=== PATIENT | male | born 1965 | race Caucasian/White ===

== ENCOUNTER 2020-05-27 13:47 | Inpatient (IN) | payer OTHER ==
[2020-05-27] MEDS ORDERED: BISMUTH SUBSALICYLATE 524 MG/30 ML UD PO PRN (15:58)
[2020-05-27] MEDS ORDERED: ACETAMINOPHEN 325 MG TABLET (FP) PO PRN (15:58)
[2020-05-27] MEDS ORDERED: NICOTINE POLACRILEX 2 MG GUM BUC PRN (15:58)
[2020-05-27] MEDS ORDERED: MAG HYDROX/AL HYDROX/SIMETH 30 ML UNIT-DOSE CUP PO PRN (15:58)
[2020-05-27] MEDS ORDERED: MAGNESIUM CITRATE 300 ML BOTTLE PO PRN (15:58)
[2020-05-27] MEDS ORDERED: MENTHOL/PHENOL 1 EACH UD MM PRN (15:58)
[2020-05-27] MEDS ORDERED: ONDANSETRON *ODT* 4 MG TABLET SL PRN (15:58)
[2020-05-27] MEDS ORDERED: MAGNESIUM HYDROX 2400MG/30ML ORAL SUSPENSION 30 ML CUP PO PRN (15:58)
[2020-05-27 16:26] VITALS: BMI 30.4
[2020-05-27] MEDS: chlordiazePOXIDE HCL 25 MG CAPSULE PO PRN (18:12)
[2020-05-27] MEDS: hydrOXYzine PAMOATE 25 MG CAPSULE (FP) PO SCH ×2 (18:14→22:11)
[2020-05-27] MEDS: METHOCARBAMOL 500 MG TABLET PO PRN (18:14)
[2020-05-27] MEDS: chlordiazePOXIDE HCL 25 MG CAPSULE PO SCH ×2 (18:43→22:10)
[2020-05-27] MEDS: NICOTINE 21 MG/24 HOURS TOPICAL PATCH TD SCH (18:46)
[2020-05-27] MEDS ORDERED: MELATONIN 5 MG TABLETS PO SCH (22:00)
[2020-05-27] MEDS: THIAMINE HCL 100 MG TABLET (FP) PO SCH (22:11)
[2020-05-28] MEDS: chlordiazePOXIDE HCL 25 MG CAPSULE PO SCH ×4 (05:40→22:09)
[2020-05-28] MEDS: METHOCARBAMOL 500 MG TABLET PO PRN (05:43)
[2020-05-28] MEDS: hydrOXYzine PAMOATE 25 MG CAPSULE (FP) PO SCH ×3 (05:46→13:02)
[2020-05-28] MEDS: metFORMIN HCL 500 MG TABLET (FP) PO SCH ×2 (07:34→16:54)
[2020-05-28] MEDS: LEVOTHYROXINE NA 25 MCG TABLET (FP) PO SCH (07:35)
[2020-05-28] MEDS: LEVOTHYROXINE NA 100 MCG TABLET (FP) PO SCH (07:35)
[2020-05-28] MEDS ORDERED: METHADONE HCL 10 MG TABLET ONE ×2 (09:49→10:18)
[2020-05-28] MEDS ORDERED: METHADONE HCL 40 MG DISPERSABLE TABLET ONE ×2 (09:50→10:18)
[2020-05-28] MEDS ORDERED: METHADONE HCL 10 MG TABLET PO ONE (10:00)
[2020-05-28] MEDS ORDERED: METHADONE 40 MG, METHADONE 30 MG PO ONE (10:00)
[2020-05-28] MEDS ORDERED: LEVOTHYROXINE NA 25 MCG TABLET (FP) PO SCH (10:00)
[2020-05-28] MEDS ORDERED: LISINOPRIL 20 MG TABLET PO SCH (10:00)
[2020-05-28] MEDS: PRENATAL VITAMINS W/ FOLIC ACID TABLET (FP) PO SCH (10:11)
[2020-05-28] MEDS: NICOTINE 21 MG/24 HOURS TOPICAL PATCH TD SCH (10:13)
[2020-05-28 12:16] LABS: HEMATOCRIT 36.5 % (35.4-49); HEMOGLOBIN 11.9 GM/dL (11.7-16.9); MCH 23.8 pg (25.7-33.7); MCHC 32.4 g/dl (32.0-35.9); MEAN CELL VOLUME 73.4 fl (80-96); MEAN PLT VOLUME 7.4 fl (7.5-11.1); PLATELET COUNT 480 K/MM3 (134-434); RBC 4.98 M/mm3 (4.00-5.60); RDW 17.4 % (11.9-15.9); WHITE BLOOD COUNT 10.9 K/mm3 (4.0-10.0)
[2020-05-28 12:31] LABS: ALBUMIN 3.9 g/dl (3.4-5.0); BLOOD UREA NITROGEN 11.4 mg/dL (7-18); CALCIUM 9.5 mg/dL (8.5-10.1)
[2020-05-28 12:34] LABS: CREATININE 0.9 mg/dL (0.55-1.3)
[2020-05-28 12:36] LABS: BILIRUBIN,TOTAL 0.7 mg/dL (0.2-1); TOT PROT 7.7 g/dl (6.4-8.2)
[2020-05-28] MEDS: IBUPROFEN 400 MG TABLET (FP) PO PRN (13:01)
[2020-05-28 13:18] LABS: HIV INTERPRETATION NEGATIVE (NEGATIVE)
[2020-05-28] MEDS ORDERED: cloNIDine HCL 0.1 MG TABLET PO PRN (14:28)
[2020-05-28] MEDS: ACETAMINOPHEN 325 MG TABLET (FP) PO PRN (16:18)
[2020-05-28] MEDS: THIAMINE HCL 100 MG TABLET (FP) PO SCH (22:08)
[2020-05-28] MEDS: traZODone HCL 50 MG TABLET (FP) PO SCH (22:10)
[2020-05-28] MEDS: SUVOREXANT 10 MG TABLET PO PRN (22:10)
[2020-05-29] MEDS ORDERED: METHADONE HCL 10 MG TABLET PO SCH (06:00)
[2020-05-29] MEDS: metFORMIN HCL 500 MG TABLET (FP) PO SCH ×2 (07:16→18:04)
[2020-05-29] MEDS: LEVOTHYROXINE NA 100 MCG TABLET (FP) PO SCH (07:17)
[2020-05-29] MEDS: chlordiazePOXIDE HCL 25 MG CAPSULE PO SCH ×4 (07:17→22:16)
[2020-05-29] MEDS: LEVOTHYROXINE NA 25 MCG TABLET (FP) PO SCH (07:18)
[2020-05-29] MEDS ORDERED: METHADONE HCL 40 MG DISPERSABLE TABLET ONE (07:19)
[2020-05-29] MEDS ORDERED: METHADONE HCL 10 MG TABLET ONE (07:19)
[2020-05-29] MEDS: METHADONE 40 MG, METHADONE 30 MG PO SCH (07:19)
[2020-05-29] MEDS: IBUPROFEN 400 MG TABLET (FP) PO PRN (08:49)
[2020-05-29] MEDS: METHOCARBAMOL 500 MG TABLET PO PRN ×2 (08:49→22:20)
[2020-05-29] MEDS ORDERED: COLLOIDAL OATMEAL 1 BAR EACH TP PRN (09:20)
[2020-05-29] MEDS: NICOTINE 21 MG/24 HOURS TOPICAL PATCH TD SCH (10:01)
[2020-05-29] MEDS: LISINOPRIL 20 MG TABLET PO SCH ×2 (10:01→22:15)
[2020-05-29] MEDS: PRENATAL VITAMINS W/ FOLIC ACID TABLET (FP) PO SCH (10:01)
[2020-05-29] MEDS: CLOTRIMAZOLE 1% CREAM 15 GM TUBE TP SCH ×2 (12:00→22:18)
[2020-05-29] MEDS: LIDOCAINE 5% TOPICAL PATCH TP SCH (12:18)
[2020-05-29] MEDS: chlordiazePOXIDE HCL 25 MG CAPSULE PO PRN (14:05)
[2020-05-29] MEDS: hydrOXYzine PAMOATE 25 MG CAPSULE (FP) PO PRN (18:07)
[2020-05-29] MEDS: traZODone HCL 50 MG TABLET (FP) PO SCH (22:16)
[2020-05-29] MEDS: LIDOCAINE PATCH REMOVAL MC SCH (22:17)
[2020-05-29] MEDS: THIAMINE HCL 100 MG TABLET (FP) PO SCH (22:18)
[2020-05-29] MEDS: ACETAMINOPHEN 325 MG TABLET (FP) PO PRN (22:19)
[2020-05-29] MEDS: SUVOREXANT 10 MG TABLET PO PRN (22:21)
[2020-05-30] MEDS ORDERED: chlordiazePOXIDE HCL 10 MG CAPSULE PO PRN
[2020-05-30] MEDS ORDERED: METHADONE HCL 10 MG TABLET ONE (03:39)
[2020-05-30] MEDS ORDERED: METHADONE HCL 40 MG DISPERSABLE TABLET ONE (03:40)
[2020-05-30] MEDS: metFORMIN HCL 500 MG TABLET (FP) PO SCH ×2 (06:49→17:49)
[2020-05-30] MEDS: chlordiazePOXIDE HCL 10 MG CAPSULE PO SCH ×4 (06:49→22:03)
[2020-05-30] MEDS: LEVOTHYROXINE NA 25 MCG TABLET (FP) PO SCH (06:50)
[2020-05-30] MEDS: METHADONE 40 MG, METHADONE 30 MG PO SCH (06:50)
[2020-05-30] MEDS: LEVOTHYROXINE NA 100 MCG TABLET (FP) PO SCH (06:50)
[2020-05-30] MEDS: METHOCARBAMOL 500 MG TABLET PO PRN ×2 (07:38→17:59)
[2020-05-30] MEDS: ACETAMINOPHEN 325 MG TABLET (FP) PO PRN ×2 (07:38→19:58)
[2020-05-30] MEDS: LISINOPRIL 20 MG TABLET PO SCH ×2 (10:26→22:03)
[2020-05-30] MEDS: CLOTRIMAZOLE 1% CREAM 15 GM TUBE TP SCH ×2 (10:27→22:04)
[2020-05-30] MEDS: PRENATAL VITAMINS W/ FOLIC ACID TABLET (FP) PO SCH (10:27)
[2020-05-30] MEDS: NICOTINE 21 MG/24 HOURS TOPICAL PATCH TD SCH (10:27)
[2020-05-30] MEDS: LIDOCAINE 5% TOPICAL PATCH TP SCH (10:28)
[2020-05-30] MEDS: hydrOXYzine PAMOATE 25 MG CAPSULE (FP) PO PRN (15:13)
[2020-05-30] MEDS: IBUPROFEN 400 MG TABLET (FP) PO PRN (17:59)
[2020-05-30] MEDS: LIDOCAINE PATCH REMOVAL MC SCH (22:04)
[2020-05-30] MEDS: THIAMINE HCL 100 MG TABLET (FP) PO SCH (22:04)
[2020-05-30] MEDS: traZODone HCL 50 MG TABLET (FP) PO SCH (22:05)
[2020-05-30] MEDS: SUVOREXANT 10 MG TABLET PO PRN (23:18)
[2020-05-31] MEDS ORDERED: METHADONE HCL 10 MG TABLET ONE (04:26)
[2020-05-31] MEDS ORDERED: METHADONE HCL 40 MG DISPERSABLE TABLET ONE (04:26)
[2020-05-31] MEDS: chlordiazePOXIDE HCL 10 MG CAPSULE PO SCH ×2 (05:55→16:39)
[2020-05-31] MEDS: metFORMIN HCL 500 MG TABLET (FP) PO SCH ×2 (06:39→16:39)
[2020-05-31] MEDS: LEVOTHYROXINE NA 25 MCG TABLET (FP) PO SCH (06:40)
[2020-05-31] MEDS: LEVOTHYROXINE NA 100 MCG TABLET (FP) PO SCH (06:40)
[2020-05-31] MEDS: METHADONE 40 MG, METHADONE 30 MG PO SCH (06:42)
[2020-05-31] MEDS: IBUPROFEN 400 MG TABLET (FP) PO PRN ×2 (07:32→18:26)
[2020-05-31] MEDS: METHOCARBAMOL 500 MG TABLET PO PRN ×2 (07:32→18:26)
[2020-05-31] MEDS: LISINOPRIL 20 MG TABLET PO SCH ×2 (10:04→22:11)
[2020-05-31] MEDS: NICOTINE 21 MG/24 HOURS TOPICAL PATCH TD SCH (10:04)
[2020-05-31] MEDS: PRENATAL VITAMINS W/ FOLIC ACID TABLET (FP) PO SCH (10:04)
[2020-05-31] MEDS: CLOTRIMAZOLE 1% CREAM 15 GM TUBE TP SCH ×2 (10:06→22:13)
[2020-05-31] MEDS: LIDOCAINE 5% TOPICAL PATCH TP SCH (10:06)
[2020-05-31] MEDS: ACETAMINOPHEN 325 MG TABLET (FP) PO PRN (10:07)
[2020-05-31] MEDS: hydrOXYzine PAMOATE 25 MG CAPSULE (FP) PO PRN ×2 (16:39→22:12)
[2020-05-31] MEDS: traZODone HCL 50 MG TABLET (FP) PO SCH (22:11)
[2020-05-31] MEDS: THIAMINE HCL 100 MG TABLET (FP) PO SCH (22:12)
[2020-05-31] MEDS: LIDOCAINE PATCH REMOVAL MC SCH (22:12)
[2020-06-01] MEDS ORDERED: METHADONE HCL 10 MG TABLET ONE (03:30)
[2020-06-01] MEDS ORDERED: METHADONE HCL 40 MG DISPERSABLE TABLET ONE (03:31)
[2020-06-01] MEDS ORDERED: chlordiazePOXIDE HCL 10 MG CAPSULE PO ONE (05:00)
[2020-06-01] MEDS: metFORMIN HCL 500 MG TABLET (FP) PO SCH (06:05)
[2020-06-01] MEDS: METHOCARBAMOL 500 MG TABLET PO PRN (06:09)
[2020-06-01] MEDS: IBUPROFEN 400 MG TABLET (FP) PO PRN (06:09)
[2020-06-01] MEDS: LEVOTHYROXINE NA 25 MCG TABLET (FP) PO SCH (06:35)
[2020-06-01] MEDS: LEVOTHYROXINE NA 100 MCG TABLET (FP) PO SCH (06:35)
[2020-06-01] MEDS: METHADONE 40 MG, METHADONE 30 MG PO SCH (06:58)
[2020-06-01 09:31] VITALS: BP 130/95; PULSE 97; TEMP 97.1
[2020-06-01] MEDS: LISINOPRIL 20 MG TABLET PO SCH (09:51)
== END 2020-06-01 10:06 | disposition home or self-care (01) | DRG 773 ==
LOC: YASAS 13:47 → Y6N 16:31
PROVIDERS: ADMIT Allergy & Immunology; ATTEND Allergy & Immunology
PROC: HZ2ZZZZ Detoxification Services for Substance Abuse Treatment (ICD-10-PCS; principal; 2020-05-27)
DX: F11.23 Opioid dependence with withdrawal (principal); F10.230 Alcohol dependence with withdrawal, uncomplicated; F17.210 Nicotine dependence, cigarettes, uncomplicated; F19.282 Other psychoactive substance dependence with psychoactive substance-induced sleep disorder; F19.24 Other psychoactive substance dependence with psychoactive substance-induced mood disorder; F32.9 Major depressive disorder, single episode, unspecified; E03.9 Hypothyroidism, unspecified; E11.9 Type 2 diabetes mellitus without complications; Z79.84 Long term (current) use of oral hypoglycemic drugs; I10 Essential (primary) hypertension; M17.0 Bilateral primary osteoarthritis of knee; B18.2 Chronic viral hepatitis C; B35.3 Tinea pedis; E66.9 Obesity, unspecified; Z68.30 Body mass index [BMI] 30.0-30.9, adult
CPT/HCPCS: 36415; 80053; 82962; 85027; 86780; 87389; 93005; 93010; C9803; U0003